=== PATIENT | male | born 1975 | race Caucasian/White ===

== ENCOUNTER 2020-04-01 14:51 | Emergency (ER) | payer BC ==
[~2020-04-01] VITALS: Ht 182.9 cm; Wt 136.4 kg
[2020-04-01 14:57] VITALS: TEMP 97.8
[2020-04-01 19:52] VITALS: BP 144/94; PULSE 68
== END 2020-04-01 19:52 | disposition home or self-care (01) ==
LOC: COL.ER 14:51
DX: R51.9 Headache, unspecified (principal)
CPT/HCPCS: J0595; J1170; J1885

== ENCOUNTER → 2021-02-09 | Outpatient (CLI) | payer BC ==
[~2021-02-09] MED LIST: MOBIC15 MG PO; PRILOSEC 20MG20 MG PO
[2021-02-09 06:13] VITALS: BP 145/90; PULSE 59
[2021-02-09 07:15] VITALS: BP 129/75; PULSE 57
[2021-02-09 07:22] VITALS: BP 125/74; PULSE 93
[2021-02-09 07:23] VITALS: BP 130/76; PULSE 87
[2021-02-09 07:24] VITALS: BP 128/77; PULSE 83
== END ==
LOC: COL.CARD 05:45
DX: R07.89 Other chest pain (principal)
CPT/HCPCS: A9500; J2785